=== PATIENT | male | born 1985 | race African-American/Black ===

== ENCOUNTER 2017-11-30 15:23 | Inpatient (IN) | payer MEDICAID ==
[~2017-11-30] VITALS: Ht 157.5 cm; Wt 49.6 kg
[2017-11-30] MEDS ORDERED: SODIUM CHLORIDE 0.9% 1,000 ML IVB ONE (15:35)
[2017-11-30] MEDS ORDERED: ONDANSETRON HCL 4 MG/2 ML VIAL ONE (15:36)
[2017-11-30] MEDS ORDERED: ONDANSETRON HCL 4 MG/2 ML VIAL IV ONE ×2 (15:45→16:30)
[2017-11-30 15:46] LABS: Basophils # (auto) 0.1 uL; Basophils % (auto) 0.7 % (0.0-2.0); Eosinophils # (auto) 0.1 uL; Eosinophils % (auto) 0.4 % (0.0-7.0); Hematocrit 51.2 % (41.0-53.0); Hemoglobin 17.3 g/dL (13.5-17.5); Lymphocytes # (auto) 2.8 uL; Lymphocytes % (auto) 15.4 % (10.0-50.0); Mean Corpuscular Hemoglobin 29.7 pg (28.0-32.0); Mean Corpuscular Hgb Conc. 33.8 g/dL (32.0-36.0); Mean Corpuscular Volume 87.7 fL (80.0-100.0); Monocytes # (auto) 0.7 uL; Monocytes % (auto) 3.7 % (0.0-12.0); Neutrophils # (auto) 14.3 uL; Neutrophils % (auto) 79.8 % (37.0-80.0); Platelet Count (auto) 361 10^3/uL (140-450); Red Blood Cells 5.83 10^6/uL (4.5-5.90); Red Cell Distribution Width 13.7 % (11.8-14.3); White Blood Cell 17.9 10^3/uL (4.4-10.8)
[2017-11-30 16:02] LABS: Albumin 5.3 g/dL (3.4-5.0); Calcium 10.8 mg/dL (8.5-10.1); Potassium 3.9 mmol/L (3.5-5.1)
[2017-11-30 16:06] LABS: BUN/Creatinine Ratio 8.9; Bilirubin, Total 0.7 mg/dL (0.2-1.0); Total Protein 9.9 g/dL (6.4-8.2)
[2017-11-30] MEDS ORDERED: SODIUM CHLORIDE 0.9% 1,000 ML IV ONE ×3 (16:17→16:30)
[2017-11-30] MEDS ORDERED: cefTRIAXone 1GM/50ML D5W 50 ML IV ONE (16:30)
[2017-11-30] MEDS ORDERED: KETOROLAC TROMETH 30 MG/ML 1ML VIAL IV ONE (16:30)
[2017-11-30] MEDS ORDERED: LORazepam 2MG/ML-1ML VIAL IV ONE (16:45)
[2017-11-30] MEDS ORDERED: AZITHROMYCIN 500MG/ 250ML 250 ML IV ONE (17:15)
[2017-11-30] MEDS ORDERED: TEMAZEPAM 15 MG CAP PO PRN (20:30)
[2017-11-30] MEDS ORDERED: ACETAMINOPHEN 325 MG TAB PO PRN (20:30)
[2017-11-30] MEDS: SODIUM CHLORIDE 0.9% 1,000 ML IV SCH (21:11)
[2017-11-30] MEDS: ONDANSETRON HCL 4 MG/2 ML VIAL IV PRN (21:12)
[2017-11-30] MEDS ORDERED: PANTOPRAZOLE 40 MG/10 ML VIAL IV ONE (21:15)
[2017-11-30] MEDS ORDERED: FAMOTIDINE 20 MG TAB PO SCH (22:00)
[2017-11-30] MEDS ORDERED: PROMETHAZINE HCL 25 MG/ML 1ML IV ONE (23:00)
[2017-12-01] MEDS: HYDROcodone-ACET 5/325MG TAB PO PRN ×3 (06:51→21:32)
[2017-12-01] MEDS ORDERED: PANTOPRAZOLE 40 MG/10 ML VIAL IV SCH ×3 (07:00→10:30)
[2017-12-01 07:10] LABS: Urine Bacteria NONE SEEN /hpf (None Seen); Urine Blood Negative /uL (Negative); Urine Mucus FEW (None Seen); Urine Specific Gravity 1.023 (1.001-1.035); Urine WBC 2 /hpf (0 - 3)
[2017-12-01 07:31] LABS: Alcohol, Urine < 3.0 mg/dL (0-5); Amphetamine Screen, Urine NEGATIVE (NEGATIVE); Barbiturate Scree,Urine NEGATIVE (NEGATIVE); Benzodiazephine Screen, Urine NEGATIVE (NEGATIVE); Cannabinoid Screen, Urine POSITIVE (NEGATIVE); Cocaine Screen, Urine NEGATIVE (NEGATIVE); Opiate Scree,Urine NEGATIVE (NEGATIVE); Phencyclidine Screen, Urine NEGATIVE (NEGATIVE)
[2017-12-01 08:36] VITALS: BP 162/109
[2017-12-01] MEDS: SODIUM CHLORIDE 0.9% 1,000 ML IV SCH ×2 (09:50→23:13)
[2017-12-01] MEDS: LEVOFLOXACIN 500MG 100 ML IV SCH (10:20)
[2017-12-01] MEDS ORDERED: CYCL1TAB18 PO (11:04)
[2017-12-01] MEDS ORDERED: FAMO-12 PO (11:04)
[2017-12-01 11:08] LABS: Basophils # (auto) 0.1 uL; Basophils % (auto) 0.5 % (0.0-2.0); Eosinophils # (auto) 0 uL; Hematocrit 46.6 % (41.0-53.0); Hemoglobin 15.6 g/dL (13.5-17.5); Lymphocytes # (auto) 1.6 uL; Lymphocytes % (auto) 7.8 % (10.0-50.0); Mean Corpuscular Hemoglobin 29.2 pg (28.0-32.0); Mean Corpuscular Hgb Conc. 33.5 g/dL (32.0-36.0); Mean Corpuscular Volume 87.2 fL (80.0-100.0); Monocytes # (auto) 0.8 uL; Monocytes % (auto) 4.1 % (0.0-12.0); Neutrophils % (auto) 87.6 % (37.0-80.0); Platelet Count (auto) 313 10^3/uL (140-450); Red Blood Cells 5.34 10^6/uL (4.5-5.90); Red Cell Distribution Width 13.3 % (11.8-14.3); White Blood Cell 20.5 10^3/uL (4.4-10.8)
[2017-12-01 11:34] LABS: Albumin 4.5 g/dL (3.4-5.0); Calcium 9.3 mg/dL (8.5-10.1); Potassium 3.5 mmol/L (3.5-5.1)
[2017-12-01 11:39] LABS: BUN/Creatinine Ratio 7.3; Bilirubin, Total 1.1 mg/dL (0.2-1.0); Total Protein 8.5 g/dL (6.4-8.2)
[2017-12-01 12:02] VITALS: BP 144/98
[2017-12-01] MEDS ORDERED: hydrALAZINE HCL 20 MG/ML VL IV PRN (12:30)
[2017-12-01] MEDS: MORPHINE SULFATE 4 MG/ML SYR/VIAL IV PRN ×3 (14:20→23:47)
[2017-12-01 15:15] LABS: INR 1.04 (0.9-1.15); Partial Thromboplastin Time 27.5 sec (23.78-33.04); Prothrombin Time 11.1 sec (9.27-12.13)
[2017-12-01 16:50] VITALS: BP 121/77
[2017-12-01] MEDS: PANTOPRAZOLE 40 MG/10 ML VIAL IV SCH (21:33)
[2017-12-01] MEDS: ONDANSETRON HCL 4 MG/2 ML VIAL IV PRN (21:33)
[2017-12-02] MEDS ORDERED: MORPHINE SULFATE 4 MG/ML SYR/VIAL IV ONE (00:30)
[2017-12-02 04:50] VITALS: BP 118/83
[2017-12-02 09:00] VITALS: BP 135/78
[2017-12-02] MEDS: LEVOFLOXACIN 500MG 100 ML IV SCH (09:42)
[2017-12-02] MEDS: PANTOPRAZOLE 40 MG/10 ML VIAL IV SCH (09:42)
[2017-12-02] MEDS ORDERED: SODIUM CHLORIDE LOCK 10 ML ONE (10:17)
[2017-12-02] MEDS ORDERED: LIDOCAINE VISCOUS 2% 15ML UD ONE (10:17)
[2017-12-02] MEDS: fentaNYL CITRATE 100 MCG/2 ML VL ONE ×2 (12:17→12:20)
[2017-12-02] MEDS: MIDAZOLAM HCL 5 MG/ML-1ML VIAL ONE ×2 (12:17→12:20)
[2017-12-02] MEDS ORDERED: diphenhdrAMINE 50mg/ml (500mg/10ml VIAL) ONE (12:18)
[2017-12-02 13:00] VITALS: BP 130/76
[2017-12-02] MEDS ORDERED: PANT40TA2 PO (13:46)
[2017-12-02] MEDS ORDERED: AMLO5TAB13 PO (13:46)
[2017-12-02] MEDS ORDERED: amLODIPine BESYLATE 5 MG TAB PO SCH (13:59)
[2017-12-02 14:06] LABS: Basophils # (auto) 0.1 uL; Basophils % (auto) 0.8 % (0.0-2.0); Eosinophils # (auto) 0 uL; Eosinophils % (auto) 0.1 % (0.0-7.0); Hematocrit 46.2 % (41.0-53.0); Hemoglobin 15.5 g/dL (13.5-17.5); Lymphocytes # (auto) 2.1 uL; Lymphocytes % (auto) 15.6 % (10.0-50.0); Mean Corpuscular Hemoglobin 29.4 pg (28.0-32.0); Mean Corpuscular Hgb Conc. 33.7 g/dL (32.0-36.0); Mean Corpuscular Volume 87.3 fL (80.0-100.0); Monocytes # (auto) 0.5 uL; Monocytes % (auto) 3.8 % (0.0-12.0); Neutrophils # (auto) 10.6 uL; Neutrophils % (auto) 79.7 % (37.0-80.0); Platelet Count (auto) 284 10^3/uL (140-450); Red Blood Cells 5.29 10^6/uL (4.5-5.90); Red Cell Distribution Width 13.5 % (11.8-14.3); White Blood Cell 13.3 10^3/uL (4.4-10.8)
[2017-12-02 17:00] VITALS: BP 134/71
[2017-12-02] MEDS ORDERED: SUCRALFATE 1 GM/10 ML ORAL SUSP PO SCH (17:00)
== END 2017-12-02 20:15 | disposition home or self-care (01) | DRG 241 ==
LOC: ER 15:23 → OVERFLOW 15:24 → EAST 12-01 08:30
PROVIDERS: ADMIT Nurse Practitioner; ATTEND Internal Medicine
PROC: 0DB68ZX Excision of Stomach, Via Natural or Artificial Opening Endoscopic, Diagnostic (ICD-10-PCS; principal; 2017-12-02 12:15)
DX: K29.70 Gastritis, unspecified, without bleeding (principal); R65.10 Systemic inflammatory response syndrome (SIRS) of non-infectious origin without acute organ dysfunction; E86.0 Dehydration; K20.9 Esophagitis, unspecified; F12.10 Cannabis abuse, uncomplicated; I10 Essential (primary) hypertension; K57.30 Diverticulosis of large intestine without perforation or abscess without bleeding; J98.11 Atelectasis; Z72.89 Other problems related to lifestyle
CPT/HCPCS: 36415; 43239; 71045; 74176; 80053; 80307; 81001; 82150; 83690; 85025; 85610; 85730; 87040; 96361; 96365; 96375; A6257; C9113; G0378; J0696; J1200; J1885; J1956; J2250; J2405